=== PATIENT | female | born 2000 | race Caucasian/White ===

== ENCOUNTER 2020-03-31 19:28 | Emergency (ER) | payer OTHER ==
[~2020-03-31] VITALS: Ht 152.4 cm; Wt 59.0 kg
[2020-03-31] MEDS ORDERED: VENL25 (19:39)
[2020-03-31] MEDS ORDERED: ALBU90OI (19:39)
[2020-03-31] MEDS ORDERED: ALBU90OI INH (21:42)
[2020-03-31] MEDS ORDERED: Prednisone20 MG PO (21:42)
[2020-03-31 22:41] LABS: Influenza A, PCR NEGATIVE (NEGATIVE); Influenza B, PCR NEGATIVE (NEGATIVE); Resp Syncytial Virus, PCR NEGATIVE (NEGATIVE); SARS-Cov-2 (COVID-19) PCR, MMC NEGATIVE (NEGATIVE)
== END 2020-03-31 23:20 | disposition home or self-care (01) ==
LOC: ER 19:28
PROVIDERS: Emergency Medicine
DX: J45.901 Unspecified asthma with (acute) exacerbation (principal); Z79.899 Other long term (current) drug therapy; Z20.822 Contact with and (suspected) exposure to COVID-19
CPT/HCPCS: 0241U; 36415; 71045; 94640; 99285-25; 99406; J7512